=== PATIENT | female | born 2000 | race Two or more races ===

== ENCOUNTER 2023-09-17 06:13 | Emergency (ER) | payer OTHER ==
[~2023-09-17] VITALS: Ht 167.6 cm; Wt 71.3 kg
[2023-09-17 07:21] LABS: RSV AMPLIFICATION NEGATIVE (NEGATIVE)
[2023-09-17] MEDS ORDERED: DEXA6TAB PO (07:46)
[2023-09-17 07:50] VITALS: BP 112/64; TEMP 97.5; O2SAT 100
[2023-09-17] MEDS: dexAMETHasone 4 MG TAB PO STA (07:55)
== END 2023-09-17 08:06 | disposition home or self-care (01) ==
LOC: M ED 06:13
DX: J02.9 Acute pharyngitis, unspecified (principal)

== ENCOUNTER 2024-01-24 23:47 | Emergency (ER) | payer OTHER ==
[~2024-01-24] VITALS: Ht 167.6 cm; Wt 67.1 kg
[~2024-01-24 23:47] MED LIST: DEXA6TAB PO
[2024-01-25] MEDS: IBUPROFEN 800 MG TAB PO ONE (00:09)
[2024-01-25] MEDS: ONDANSETRON 4MG ORAL DISINTEGRATING TAB PO ONE (00:09)
[2024-01-25] MEDS: AMOXICILLIN 500 MG CAP PO ONE (00:53)
[2024-01-25 00:57] VITALS: BP 126/65; TEMP 101; O2SAT 100
[2024-01-25] MEDS ORDERED: AMOX500C PO (01:07)
[2024-01-25] MEDS: ACETAMINOPHEN 500 MG TAB PO ONE (01:11)
== END 2024-01-25 01:18 | disposition home or self-care (01) ==
LOC: M ED 23:47
DX: J02.0 Streptococcal pharyngitis (principal); Z79.2 Long term (current) use of antibiotics